=== PATIENT | male | born 1960 | race Caucasian/White ===

== ENCOUNTER 2016-11-04 08:43 | Observation (INO) | payer MEDICAID, OTHER ==
[2016-11-04] MEDS ORDERED: Sodium Chloride 0.9% 2.5 ML Syringe FLUSH PRN ×2 (09:30)
[2016-11-04] MEDS ORDERED: Sodium Chloride 0.9% 10 ML Syringe FLUSH PRN ×2 (09:30)
[2016-11-04] MEDS ORDERED: Sodium Chloride 0.9% 1,000 ML IV ONE (09:30)
--- NOTE | 2016-11-04 10:37 | EDM.PDOC ---
[id number] Information: Reports: Patient History Limitations: Reports: No Limitations - History of Present Illness INITIAL COMMENTS - FREE TEXT/NARRATIVE: HISTORY AND PHYSICAL: History of present illness: [56-year-old male complaining of malaise and urinary difficulties] Review of systems: As per history of present illness and below otherwise all systems reviewed and negative. Past medical history: As per history of present illness and as reviewed below otherwise noncontributory. Surgical history: As per history of present illness and as reviewed below otherwise noncontributory. Social history: No reported history of drug or alcohol abuse. Family history: As per history of present illness and as reviewed below otherwise noncontributory. Physical exam: HEENT: Atraumatic, normocephalic, pupils reactive, negative for conjunctival pallor or scleral icterus, mucous membranes moist, throat clear, neck supple, nontender, trachea midline. Lungs: Clear to auscultation, breath sounds equal bilaterally, chest nontender. Heart: S1S2, regular, negative for clicks, rubs, or JVD. Abdomen: Soft, nondistended, nontender. Negative for masses or hepatosplenomegaly. Negative for costovertebral tenderness. Pelvis: Stable nontender. Genitourinary: Deferred. Rectal: Deferred. Extremities: Atraumatic, negative for cords or calf pain. Neurovascular unremarkable. Neuro: Awake, alert, oriented. Cranial nerves II through XII unremarkable. Cerebellum unremarkable. Motor and sensory unremarkable throughout. Exam nonfocal. Diagnostics: [] Therapeutics: [] Impression: [] Plan: [Will do observation admission for treatment of hyponatremia case discussed with Dr. Enrrique Manzanares is aware of history and findings accept patient for observation admission to his service] Definitive disposition and diagnosis as appropriate pending reevaluation and review of above. Generalized abdominal pain Pain Score (Numeric/FACES): 7 - Related Data Allergies Allergy/AdvReac Type Severity Reaction Status Date / Time No Known Allergies Allergy Verified 11/04/16 09:00 Home Meds: Home Meds Polyethylene Glycol 3350 [MiraLAX] 17 gm PO BID #30 packet 11/06/16 [Rx] Tamsulosin HCl 0.4 mg PO DAILY #30 cap.er.24h 11/06/16 [Rx] Past Medical History - Past Health History Medical/Surgical History: Denies Medical/Surgical History Hematologic History: Reports: None - Infectious Disease History Infectious Disease History: Reports: Chicken Pox, Measles, Mumps Social & Family History - Family History Family Medical History: Noncontributory - Tobacco Use Smoking Status *Q: Current Every Day Smoker Years of Tobacco use: 40 Packs/Tins Daily: 1 - Caffeine Use Caffeine Use: Reports: None - Recreational Drug Use Recreational Drug Use: No ED ROS GENERAL - Review of Systems Review Of Systems: See Below (History of present illness) ED EXAM, RENAL/ - Physical Exam Exam: See Below (History of present illness) Course - Vital Signs Last Recorded V/S: Last Vital Signs Temp 36.9 C 11/06/16 16:00 Pulse 82 11/06/16 16:00 Resp 20 11/06/16 16:00 BP 106/56 L 11/06/16 16:00 Pulse Ox 91 L 11/06/16 16:00 - Orders/Labs/Meds Labs: Laboratory Tests 11/04/16 11/04/16 11/04/16 Range/Units 09:44 10:05 10:11 WBC (4.0-11.0) K/uL RBC (4.50-5.90) M/uL Hgb (13.0-17.0) g/dL Hct (38.0-50.0) % MCV (80.0-98.0) fL MCH (27.0-32.0) pg MCHC (31.0-37.0) g/dL RDW Std Deviation (28.0-62.0) fl RDW Coeff of Marcos (11.0-15.0) % Plt Count (150-400) K/uL MPV (7.40-12.00) fL Add Manual Diff Neutrophils % (Manual) (48.0-80.0) % Band Neutrophils % % Lymphocytes % (Manual) (16.0-40.0) % Monocytes % (Manual) (0.0-15.0) % Nucleated RBC % /100WBC Absolute Seg Neuts Band Neutrophils # Lymphocytes # (Manual) Monocytes # (Manual) Nucleated RBCs # K/uL Sodium 115 L* (136-146) mmol/L Potassium 3.4 L (3.5-5.1) mmol/L Chloride 80 L (98-110) mmol/L Carbon Dioxide 25 (21-31) mmol/L BUN 15 (6.0-23.0) mg/dL Creatinine 0.9 (0.6-1.5) mg/dL Est Cr Clr Drug Dosing 93.50 mL/min Estimated GFR (MDRD) > 60.0 ml/min Glucose 97 (60-110) mg/dL Calcium 7.8 L (8.8-10.8) mg/dL Total Bilirubin 0.7 (0.1-1.5) mg/dL AST 116 H (5-40) IU/L ALT 23 (8-54) IU/L Alkaline Phosphatase 75 (40-150) Troponin I < 0.10 (0.0-0.29) NG/ML Total Protein 6.8 (6.0-8.0) g/dL Albumin 3.8 (3.5-5.0) g/dL Globulin 3.0 (2.0-3.5) g/dL Albumin/Globulin Ratio 1.3 (1.3-2.8) Urine Color YELLOW Urine Appearance CLEAR Urine pH 6.0 (5.0-8.0) Ur Specific Brewer 1.010 (1.001-1.035) Urine Protein NEGATIVE (NEGATIVE) mg/dL Urine Glucose (UA) NEGATIVE (NEGATIVE) mg/dL Urine Ketones 15 H (NEGATIVE) mg/dL Urine Occult Blood SMALL H (NEGATIVE) Urine Nitrite NEGATIVE (NEGATIVE) Urine Bilirubin NEGATIVE (NEGATIVE) Urine Urobilinogen 1.0 (<2.0) EU/dL Ur Leukocyte Esterase NEGATIVE (NEGATIVE) Urine RBC 0-1 (0-2/HPF) Urine WBC 0-2 (0-5/HPF) Ur Epithelial Cells FEW (NONE-FEW) Urine Bacteria FEW (NEGATIVE) 11/04/16 Range/Units 10:11 WBC 7.50 (4.0-11.0) K/uL RBC 4.24 L (4.50-5.90) M/uL Hgb 13.9 (13.0-17.0) g/dL Hct 37.6 L (38.0-50.0) % MCV 88.7 (80.0-98.0) fL MCH 32.8 H (27.0-32.0) pg MCHC 37.0 (31.0-37.0) g/dL RDW Std Deviation 43.4 (28.0-62.0) fl RDW Coeff of Marcos 13 (11.0-15.0) % Plt Count 119 L (150-400) K/uL MPV 10.20 (7.40-12.00) fL Add Manual Diff YES Neutrophils % (Manual) 67 (48.0-80.0) % Band Neutrophils % 17 % Lymphocytes % (Manual) 10 L (16.0-40.0) % Monocytes % (Manual) 6 (0.0-15.0) % Nucleated RBC % 0.0 /100WBC Absolute Seg Neuts 5.0 Band Neutrophils # 1.3 Lymphocytes # (Manual) 0.8 Monocytes # (Manual) 0.5 Nucleated RBCs # 0 K/uL Sodium (136-146) mmol/L Potassium (3.5-5.1) mmol/L Chloride (98-110) mmol/L Carbon Dioxide (21-31) mmol/L BUN (6.0-23.0) mg/dL Creatinine (0.6-1.5) mg/dL Est Cr Clr Drug Dosing mL/min Estimated GFR (MDRD) ml/min Glucose (60-110) mg/dL Calcium (8.8-10.8) mg/dL Total Bilirubin (0.1-1.5) mg/dL AST (5-40) IU/L ALT (8-54) IU/L Alkaline Phosphatase (40-150) Troponin I (0.0-0.29) NG/ML Total Protein (6.0-8.0) g/dL Albumin (3.5-5.0) g/dL Globulin (2.0-3.5) g/dL Albumin/Globulin Ratio (1.3-2.8) Urine Color Urine Appearance Urine pH (5.0-8.0) Ur Specific Brewer (1.001-1.035) Urine Protein (NEGATIVE) mg/dL Urine Glucose (UA) (NEGATIVE) mg/dL Urine Ketones (NEGATIVE) mg/dL Urine Occult Blood (NEGATIVE) Urine Nitrite (NEGATIVE) Urine Bilirubin (NEGATIVE) Urine Urobilinogen (<2.0) EU/dL Ur Leukocyte Esterase (NEGATIVE) Urine RBC (0-2/HPF) Urine WBC (0-5/HPF) Ur Epithelial Cells (NONE-FEW) Urine Bacteria (NEGATIVE) Meds: Medications Discontinued Medications Generic Name Dose Route Start Last Admin Trade Name Freq PRN Reason Stop Dose Admin Bisacodyl 10 mg 11/04/16 14:23 11/04/16 14:50 Dulcolax RECTAL 11/04/16 14:24 10 mg ONETIME ONE Administration Sodium Chloride 1,000 mls @ 999 mls/hr 11/04/16 09:30 11/04/16 09:49 Normal Saline IV 11/04/16 10:30 999 mls/hr .Bolus ONE Administration Potassium Chloride/Sodium Chloride 1,000 mls @ 75 mls/hr 11/04/16 14:30 11/05 03:44 Normal Saline With 20 Meq Kcl IV 75 mls/hr ASDIRECTED FAISAL Administration Magnesium Sulfate 2 gm/ Premix 50 mls @ 50 mls/hr 11/05/16 09:24 11/05/16 10: 24 IV 11/05/16 10:23 50 mls/hr ONETIME ONE Administration Potassium Chloride/Sodium Chloride 1,000 mls @ 100 mls/hr 11/05/16 15:00 10/20 13:05 Normal Saline With 20 Meq Kcl IV 100 mls/hr ASDIRECTED FAISAL Administration Iopamidol 100 ml 11/04/16 11:48 11/04/16 11:50 Isovue-370 (76%) IVPUSH 11/04/16 11:49 50 ml ONETIME STA Administration Polyethylene Glycol 17 gm 11/06/16 10:00 11/06/16 11:34 Miralax PO 17 gm BID FAISAL Administration Potassium Chloride 20 meq 11/05/16 00:37 11/05/16 00:56 Klor-Con M20 PO 11/05/16 00:38 20 meq ONETIME ONE Administration Sodium Chloride 10 ml 11/04/16 09:30 11/04/16 09:49 Saline Flush FLUSH 10 ml ASDIRECTED PRN Administration Keep Vein Open Sodium Chloride 2.5 ml 11/04/16 09:30 11/04/16 09:49 Saline Flush FLUSH 2.5 ml ASDIRECTED PRN Administration Keep Vein Open Sodium Chloride 10 ml 11/04/16 09:30 11/04/16 09:49 Saline Flush FLUSH 10 ml ASDIRECTED PRN Administration Keep Vein Open Sodium Chloride 2.5 ml 11/04/16 09:30 11/04/16 09:49 Saline Flush FLUSH 2.5 ml ASDIRECTED PRN Administration Keep Vein Open Departure - Departure Time of Disposition: 15:55 Disposition: Refer to Observation Clinical Impression: Hyponatremia, Urinary retention - Discharge Information ED HPI RENAL/ - General Chief Complaint: Genitourinary Problem Stated Complaint: PT WOULD LIKE TO GET CHECK Time Seen by Provider: 11/04/16 08:48 Source of Information: Reports: Patient History Limitations: Reports: No Limitations - History of Present Illness INITIAL COMMENTS - FREE TEXT/NARRATIVE: HISTORY AND PHYSICAL: History of present illness: [56-year-old male with a long history of tobacco abuse and no prior urologic problems now presents emergent primary complaining of urinary retention. Patient states he is felt constipated over the last several days and has not moved his bowels. No nausea or vomiting. Denies abdominal pain. Patient also feels like he has subtotal avoid today. Denies fevers chills sweats or shaking chills. No flank pain. Patient has never seen a urologist or had any urinary problems. Patient does not have a primary care doctor and does not go to the doctor frequently. Patient is alert and communicative but he is slow to respond answers. His sister who is present the emergency department states that he is at his normal, chronic mental status baseline. Patient had mild hypoxia at 89-90 % nonrib-bearing triage. He has no respiratory complaints and states he always has some cough and mild chronic shortness of breath with no change. No productive cough Review of systems: As per history of present illness and below otherwise all systems reviewed and negative. Past medical history: As per history of present illness and as reviewed below otherwise noncontributory. Surgical history: As per history of present illness and as reviewed below otherwise noncontributory. Social history: No reported history of drug or alcohol abuse. Family history: As per history of present illness and as reviewed below otherwise noncontributory. Physical exam: Patient is alert communicative and cooperative with a nonfocal neurologic exam. He is well-appearing mild hypoxia on room air 89-90%, 93% on 2 L nasal cannula. Patient with benign abdominal exam with no distention and normal bowel sounds. Mild suprapubic fullness without significant tenderness HEENT: Atraumatic, normocephalic, pupils reactive, negative for conjunctival pallor or scleral icterus, mucous membranes moist, throat clear, neck supple, nontender, trachea midline. Lungs: Clear to auscultation, breath sounds equal bilaterally, chest nontender. Heart: S1S2, regular, negative for clicks, rubs, or JVD. Abdomen: Soft, nondistended, nontender. Negative for masses or hepatosplenomegaly. Negative for costovertebral tenderness. Pelvis: Stable nontender. Genitourinary: Normal nontender external genitalia. Mild suprapubic fullness without tenderness Rectal: Deferred. Extremities: Atraumatic, negative for cords or calf pain. Neurovascular unremarkable. Neuro: Awake, alert, oriented. Cranial nerves II through XII unremarkable. Cerebellum unremarkable. Motor and sensory unremarkable throughout. Exam nonfocal. Diagnostics: [] Therapeutics: [] Impression: [] Plan: [Signs and symptoms consistent with new presentation of urinary retention. Patient with 350 cc of urinary residual in his bladder after voiding just prior to presentation. Patient has no infectious prodrome. External genitalia is normal. Patient is constipated but his abdominal exam is completely benign. Patient unable to void for urinalysis Caraballo catheter placed in anticipation of indwelling Caraballo catheter placement with leg bag and urology followup. Suspect mild chronic hypoxia given patient's certain diagnosis of COPD of which he is unaware, however will check EKG troponin labs and chest x-ray to rule out acute contributory etiology Definitive disposition and diagnosis as appropriate pending reevaluation and review of above. - Related Data Allergies/ADRs: Allergies Allergy/AdvReac Type Severity Reaction Status Date / Time No Known Allergies Allergy Verified 11/04/16 09:00 Home Meds: Home Meds Polyethylene Glycol 3350 [MiraLAX] 17 gm PO BID #30 packet 11/06/16 [Rx] Tamsulosin HCl 0.4 mg PO DAILY #30 cap.er.24h 11/06/16 [Rx] Departure - Departure Time of Disposition: 11:24 Disposition: Refer to Observation Condition: good, fair Clinical Impression: Hyponatremia, Urinary retention
[2016-11-04 10:43] LABS: CHLORIDE,CL 80 mmol/L (98-110)
[2016-11-04 10:47] LABS: SODIUM,NA 115 mmol/L (136-146)
[2016-11-04] MEDS ORDERED: Iopamidol 755 Mg/ML 100 ML Bottle IVPUSH STA (11:48)
--- NOTE | 2016-11-04 14:07 | PCM.HP ---
H&P History of Present Illness - General Date of Service: 11/04/16 Source of Information: Patient, Family History Limitations: Reports: Altered mental status - History of Present Illness Initial Comments - Free Text/Narative: Pt comes to ER with several days history of constipation and urinary difficulties Sister also reports marked (20#) weight gain recently Found to be quite hyponatremic at 115 mEq/l Onset of Symptoms: Reports: gradual Duration of Symptoms: Reports: Week(s):, Getting worse Location: Reports: abdomen (pain across lower abdomen) Severity: moderate Improves with: Reports: None Worsens with: Reports: None Associated Symptoms: Reports: confusion (probably new though there has been some chronic aberration with agoraphobia) Generalized abdominal pain Pain Score (Numeric/FACES): 7 - Related Data Allergies/Adverse Reactions: Allergies Allergy/AdvReac Type Severity Reaction Status Date / Time No Known Allergies Allergy Verified 11/04/16 09:00 Home Medications: Home Meds . [No Known Home Meds] 11/04/16 [History] Past Medical History - Past Health History Medical/Surgical History: Denies Medical/Surgical History Hematologic History: Reports: None - Infectious Disease History Infectious Disease History: Reports: Chicken pox, Measles, Mumps Social & Family History - Family History Family Medical History: Noncontributory Cardiac: Reports: [place] Other Cardiac Family History: Mother from [place] - Tobacco Use Smoking Status *Q: Current Every Day Smoker Tobacco Use Within Last Twelve Months: Cigarettes Years of Tobacco use: 40 Packs/Tins Daily: 0.5 Second Hand Smoke Exposure: Yes - Caffeine Use Caffeine Use: Reports: Coffee, Soda - Recreational Drug Use Recreational Drug Use: No - Living Situation & Occupation Occupation: unemployed (Dropped out of high school. 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) H&P Review of Systems - Review of Systems: Review Of Systems: See Below General: Reports: no symptoms HEENT: Reports: no symptoms Pulmonary: Reports: No Symptoms, Other (rather sedentary) Cardiovascular: Reports: no symptoms Gastrointestinal: Reports: No symptoms, Constipation Genitourinary: Reports: retention Musculoskeletal: Reports: no symptoms Skin: Reports: no symptoms Psychiatric: Reports: no symptoms Neurological: Reports: No Symptoms Hematologic/Lymphatic: Reports: no symptoms Immunologic: Reports: no symptoms Exam - Exam Exam: See Below - Vital Signs Vital Signs: Last Vital Signs Temp 37.2 C 11/04/16 08:56 Pulse 86 11/04/16 11:30 Resp 15 11/04/16 11:30 BP 134/80 11/04/16 11:30 Pulse Ox 92 L 11/04/16 11:30 Weight: 76.204 kg - Exam General: alert, oriented (can name [place] city,day and year ,season but not date or month) HEENT: Conjunctiva clear, Hearing intact, TMs clear Neck: supple, trachea midline Lungs: Clear to auscultation, Normal respiratory effort Cardiovascular: regular rate, regular rhythm Abdomen: distention (mild), hypoactive bowel sounds (Male) Exam: Deferred Back Exam: normal inspection Extremities: 3, normal inspection, 10 Skin: warm, dry, intact Neurological: cranial nerves intact Neuro Extensive - Mental Status: alert, disorientation to time, inattentive ( very passive, little spontaneous movement or speech) Neuro Extensive - Motor, Sensory, Reflexes: CN II-XII intact Psychiatric: alert, other (very passive and quiet) - Patient Data Result Diagrams: 11/04/16 10:11 11/04/16 10:11 *Q Meaningful Use (ADM) - VTE *Q VTE Criteria *Q: - Stroke *Q Stroke Criteria *Q: - AMI *Q AMI Criteria *Q: Problem List Initiated/Reviewed/Updated: Yes Orders Last 24hrs: Active Orders 24 hr Category Date Time Status Telemetry Monitoring [Cardiac Monitoring] [RC] Q8H Care 11/04/16 12:10 Active CTA Chest W WO Contrast [Ang Chest] [CT] Routine Exams 11/04/16 11:34 Taken Medication Orders Sodium Chloride (Saline Flush) 10 ml FLUSH ASDIRECTED PRN PRN Reason: Keep Vein Open Last Admin: 11/04/16 09:49 Dose: 10 ml Sodium Chloride (Saline Flush) 2.5 ml FLUSH ASDIRECTED PRN PRN Reason: Keep Vein Open Last Admin: 11/04/16 09:49 Dose: 2.5 ml Sodium Chloride (Saline Flush) 10 ml FLUSH ASDIRECTED PRN PRN Reason: Keep Vein Open Last Admin: 11/04/16 09:49 Dose: 10 ml Sodium Chloride (Saline Flush) 2.5 ml FLUSH ASDIRECTED PRN PRN Reason: Keep Vein Open Last Admin: 11/04/16 09:49 Dose: 2.5 ml
[2016-11-04] MEDS ORDERED: Bisacodyl 10 MG Supp RECTAL ONE (14:23)
[2016-11-04] MEDS: NS + KCl 20mEq/L 1,000 ML IV SCH (14:49)
[2016-11-04 22:22] LABS: CHLORIDE,CL 86 mmol/L (98-110)
[2016-11-04 22:35] LABS: SODIUM,NA 120 mmol/L (136-146)
[2016-11-05] MEDS ORDERED: Potassium Chloride 20 MEQ Tab.ER PO ONE (00:37)
[2016-11-05] MEDS: NS + KCl 20mEq/L 1,000 ML IV SCH ×2 (03:44→16:03)
[2016-11-05 07:59] LABS: CHLORIDE,CL 91 mmol/L (98-110); SODIUM,NA 123 mmol/L (136-146)
[2016-11-05] MEDS ORDERED: Magnesium Sulfate/Water 2 GM in Premix Bag 1 BAG IV ONE (09:24)
--- NOTE | 2016-11-05 14:48 | PCM.PN ---
- General Info Date of Service: 11/05/16 Functional Status: Reports: pain controlled - Review of Systems General: Reports: No Symptoms HEENT: Reports: no symptoms Pulmonary: Reports: no symptoms Cardiovascular: Reports: No Symptoms Gastrointestinal: Reports: Constipation (unclear if he moved bowels again) Genitourinary: Reports: other (still has catheter) Musculoskeletal: Reports: no symptoms Skin: Reports: no symptoms Neurological: Reports: No Symptoms Psychiatric: Reports: no symptoms - Patient Data Vitals - most recent: Last Vital Signs Temp 37.3 C 11/05/16 12:00 Pulse 85 11/05/16 12:00 Resp 12 11/05/16 12:00 BP 101/65 11/05/16 12:00 Pulse Ox 93 L 11/05/16 12:00 Weight - most recent: 76.204 kg I&O - last 24 hours: Intake & Output 11/04/16 11/05/16 11/05/16 22:59 06:59 14:59 Intake Total 300 1716 50 Output Total 1400 1600 Balance -1100 116 50 Lab Results last 24 hrs: Laboratory Results - last 24 hr 11/04/16 11/05/16 Range/Units 21:54 07:31 Sodium 120 L 123 L (136-146) mmol/L Potassium 3.3 L 3.8 (3.5-5.1) mmol/L Chloride 86 L 91 L (98-110) mmol/L Carbon Dioxide 25 24 (21-31) mmol/L BUN 17 12 (6.0-23.0) mg/dL Creatinine 0.9 0.8 (0.6-1.5) mg/dL Est Cr Clr Drug Dosing 90.56 101.88 mL/min Estimated GFR (MDRD) > 60.0 > 60.0 ml/min Glucose 98 83 (60-110) mg/dL Calcium 7.6 L 7.7 L (8.8-10.8) mg/dL Magnesium 1.4 L (1.5-2.3) mEq/L Med Orders - Current: Current Medications Potassium Chloride/Sodium Chloride (Normal Saline With 20 Meq Kcl) 1,000 mls @ 75 mls/hr IV ASDIRECTED FAISAL Last Admin: 11/05/16 03:44 Dose: 75 mls/hr Sodium Chloride (Saline Flush) 10 ml FLUSH ASDIRECTED PRN PRN Reason: Keep Vein Open Last Admin: 11/04/16 09:49 Dose: 10 ml Sodium Chloride (Saline Flush) 2.5 ml FLUSH ASDIRECTED PRN PRN Reason: Keep Vein Open Last Admin: 11/04/16 09:49 Dose: 2.5 ml Sodium Chloride (Saline Flush) 10 ml FLUSH ASDIRECTED PRN PRN Reason: Keep Vein Open Last Admin: 11/04/16 09:49 Dose: 10 ml Sodium Chloride (Saline Flush) 2.5 ml FLUSH ASDIRECTED PRN PRN Reason: Keep Vein Open Last Admin: 11/04/16 09:49 Dose: 2.5 ml Discontinued Medications Bisacodyl (Dulcolax) 10 mg RECTAL ONETIME ONE Stop: 11/04/16 14:24 Last Admin: 11/04/16 14:50 Dose: 10 mg Sodium Chloride (Normal Saline) 1,000 mls @ 999 mls/hr IV .Bolus ONE Stop: 11/04/16 10:30 Last Admin: 11/04/16 09:49 Dose: 999 mls/hr Magnesium Sulfate 2 gm/ Premix 50 mls @ 50 mls/hr IV ONETIME ONE Stop: 11/05/16 10:23 Last Admin: 11/05/16 10:24 Dose: 50 mls/hr Iopamidol (Isovue-370 (76%)) 100 ml IVPUSH ONETIME STA Stop: 11/04/16 11:49 Last Admin: 11/04/16 11:50 Dose: 50 ml Potassium Chloride (Klor-Con M20) 20 meq PO ONETIME ONE Stop: 11/05/16 00:38 Last Admin: 11/05/16 00:56 Dose: 20 meq - Exam General: alert (but quite subdued, poor eye contact) HEENT: Pupils equal Neck: trachea midline Lungs: Clear to auscultation Cardiovascular: Regular Rate Abdomen: soft, no distension (Male) Exam: Deferred Back Exam: normal inspection Extremities: no edema Skin: warm Wound/Incisions: healing well (n/a) Neurological: no new focal deficit Psy/Mental Status: alert - Problem List Review Problem List Initiated/Reviewed/Updated: Yes - My Orders Last 24 Hours: My Active Orders 11/04/16 14:30 NS + KCl 20mEq/L [Normal Saline with 20 mEq KCl] 1,000 ml IV ASDIRECTED 11/04/16 17:30 Code Status [Resuscitation Status] Routine 11/04/16 Dinner Regular Diet [DIET] 11/06/16 05:01 MAGNESIUM [CHEM] Routine - Assessment Assessment:: sodium 123, same as yesterday, magnesium being repleted, calcium also low in face of normal albumen increase sodium delivery, check ionized calcium
[2016-11-06] MEDS: NS + KCl 20mEq/L 1,000 ML IV SCH ×2 (02:36→13:05)
[2016-11-06 05:33] LABS: CHLORIDE,CL 97 mmol/L (98-110); SODIUM,NA 127 mmol/L (136-146)
[2016-11-06] MEDS ORDERED: Polyethylene Glycol 3350 Powder 17 GM Packet PO SCH (10:00)
--- NOTE | 2016-11-06 10:04 | PCM.PN ---
- General Info Date of Service: 11/06/16 Functional Status: Reports: pain controlled - Review of Systems General: Reports: No Symptoms HEENT: Reports: no symptoms Pulmonary: Reports: no symptoms Cardiovascular: Reports: No Symptoms Gastrointestinal: Reports: Other (no bowel moment, unclear if still feeling bloated) Genitourinary: Reports: other (reluctant to do without javed in case it has to be put back in) Musculoskeletal: Reports: no symptoms Skin: Reports: no symptoms Neurological: Reports: No Symptoms Psychiatric: Reports: no symptoms - Patient Data Vitals - most recent: Last Vital Signs Temp 36.4 C 11/06/16 07:59 Pulse 80 11/06/16 07:59 Resp 22 H 11/06/16 07:59 BP 100/56 L 11/06/16 07:59 Pulse Ox 91 L 11/06/16 07:59 Weight - most recent: 76.204 kg I&O - last 24 hours: Intake & Output 11/05/16 11/06/16 11/06/16 22:59 06:59 14:59 Intake Total 1000 2000 Output Total 1600 1300 Balance -600 700 Lab Results last 24 hrs: Laboratory Results - last 24 hr 11/05/16 11/06/16 11/06/16 Range/Units 15:00 04:30 04:30 WBC 7.43 (4.0-11.0) K/uL RBC 3.81 L (4.50-5.90) M/uL Hgb 12.6 L (13.0-17.0) g/dL Hct 35.8 L (38.0-50.0) % MCV 94.0 (80.0-98.0) fL MCH 33.1 H (27.0-32.0) pg MCHC 35.2 (31.0-37.0) g/dL RDW Std Deviation 48.6 (28.0-62.0) fl RDW Coeff of Marcos 14 (11.0-15.0) % Plt Count 105 L (150-400) K/uL MPV 10.20 (7.40-12.00) fL Neut % (Auto) 73.6 (48.0-80.0) % Lymph % (Auto) 11.4 L (16.0-40.0) % Walker % (Auto) 14.9 (0.0-15.0) % Eos % (Auto) 0.0 (0.0-7.0) % Baso % (Auto) 0.1 (0.0-1.5) % Neut # (Auto) 5.5 (1.4-5.7) K/uL Lymph # (Auto) 0.9 (0.6-2.4) K/uL Walker # (Auto) 1.1 H (0.0-0.8) K/uL Eos # (Auto) 0.0 (0.0-0.7) K/uL Baso # (Auto) 0.0 (0.0-0.1) K/uL Nucleated RBC % 0.8 /100WBC Nucleated RBCs # 0 K/uL Ionized Calcium 4.0 L (4.6-5.1) mg/dL Sodium 127 L (136-146) mmol/L Potassium 4.1 (3.5-5.1) mmol/L Chloride 97 L (98-110) mmol/L Carbon Dioxide 21 (21-31) mmol/L BUN 10 (6.0-23.0) mg/dL Creatinine 0.8 (0.6-1.5) mg/dL Est Cr Clr Drug Dosing 101.88 mL/min Estimated GFR (MDRD) > 60.0 ml/min Glucose 82 (60-110) mg/dL Calcium 7.4 L (8.8-10.8) mg/dL Phosphorus 1.2 L (2.4-4.7) mg/dL Magnesium 1.7 (1.5-2.3) mEq/L Med Orders - Current: Current Medications Potassium Chloride/Sodium Chloride (Normal Saline With 20 Meq Kcl) 1,000 mls @ 100 mls/hr IV ASDIRECTED FAISAL Last Admin: 11/06/16 02:36 Dose: 100 mls/hr Polyethylene Glycol (Miralax) 17 gm PO BID [facility] Sodium Chloride (Saline Flush) 10 ml FLUSH ASDIRECTED PRN PRN Reason: Keep Vein Open Last Admin: 11/04/16 09:49 Dose: 10 ml Sodium Chloride (Saline Flush) 2.5 ml FLUSH ASDIRECTED PRN PRN Reason: Keep Vein Open Last Admin: 11/04/16 09:49 Dose: 2.5 ml Sodium Chloride (Saline Flush) 10 ml FLUSH ASDIRECTED PRN PRN Reason: Keep Vein Open Last Admin: 11/04/16 09:49 Dose: 10 ml Sodium Chloride (Saline Flush) 2.5 ml FLUSH ASDIRECTED PRN PRN Reason: Keep Vein Open Last Admin: 11/04/16 09:49 Dose: 2.5 ml Discontinued Medications Bisacodyl (Dulcolax) 10 mg RECTAL ONETIME ONE Stop: 11/04/16 14:24 Last Admin: 11/04/16 14:50 Dose: 10 mg Sodium Chloride (Normal Saline) 1,000 mls @ 999 mls/hr IV .Bolus ONE Stop: 11/04/16 10:30 Last Admin: 11/04/16 09:49 Dose: 999 mls/hr Potassium Chloride/Sodium Chloride (Normal Saline With 20 Meq Kcl) 1,000 mls @ 75 mls/hr IV ASDIRECTED [facility] Last Admin: 11/05/16 03:44 Dose: 75 mls/hr Magnesium Sulfate 2 gm/ Premix 50 mls @ 50 mls/hr IV ONETIME ONE Stop: 11/05/16 10:23 Last Admin: 11/05/16 10:24 Dose: 50 mls/hr Iopamidol (Isovue-370 (76%)) 100 ml IVPUSH ONETIME STA Stop: 11/04/16 11:49 Last Admin: 11/04/16 11:50 Dose: 50 ml Potassium Chloride (Klor-Con M20) 20 meq PO ONETIME ONE Stop: 11/05/16 00:38 Last Admin: 11/05/16 00:56 Dose: 20 meq - Exam General: alert, other (still very subdued though a little more animated today) HEENT: Pupils equal Neck: trachea midline Lungs: Clear to auscultation, Decreased breath sounds Cardiovascular: Regular Rate Abdomen: bowel sounds present, other (Male) Exam: Other (rectal ;mildly enlarged sl boggy prostate without nodules or tenderness. No stooli n rectum) Back Exam: normal inspection Extremities: no edema Skin: warm Wound/Incisions: healing well (n/a) Neurological: no new focal deficit Psy/Mental Status: alert (flat affect) - Problem List Review Problem List Initiated/Reviewed/Updated: Yes - My Orders Last 24 Hours: My Active Orders 11/05/16 15:00 NS + KCl 20mEq/L [Normal Saline with 20 mEq KCl] 1,000 ml IV ASDIRECTED 11/06/16 09:43 Remove Javed Catheter [Urinary Catheter Removal] [RC] Per Unit Routine 11/06/16 09:51 Communication Order [RC] PER UNIT ROUTINE 11/06/16 10:00 Polyethylene Glycol 3350 [MiraLAX] 17 gm PO BID - Assessment Assessment:: sodium 123, same as yesterday, magnesium being repleted, calcium also low in face of normal albumen increase sodium delivery, check ionized calcium - Plan Plan:: sodimum up to 127 ionized calcium 4.0 , even phosphorus low plan; laxate remove javed, mobilize
--- NOTE | 2016-11-06 15:09 | PCM.SN ---
- Free Text/Narrative Note: offers no complains. Eating well. yet no BM Has voided post Caraballo removal with a residual of 95 ml
--- NOTE | 2016-11-06 15:44 | PCM.DCSUM1 ---
Discharge Summary - Hospital Course Free Text/Narrative:: 56 yo man with little if any medical contact since childhood celiac disease comes to [facility] complaining of constipation amd lower abdominal pain Found to be in urinary retention with residual of 350, so catheter was placed. In addition he was profoundly hyponatremic as well as having low potassium magnesium and calcium, all but the last successfully repleted , Pulse ox was also low with sats in the mid to high 80ies and dropping to 82 with activity and did not rise despite weaning from cigarettes with help of a nicotine patch ,He is prescribed home oxygen at 2-3 l/mi - Discharge Data Discharge Date: 11/06/16 Discharge Disposition: Home, Self-Care 01 Condition: Fair - Discharge Plan Prescriptions/Med Rec: Polyethylene Glycol 3350 [MiraLAX] 17 gm PO BID #30 packet Tamsulosin HCl 0.4 mg PO DAILY #30 cap.er.24h Home Medications: Home Meds Polyethylene Glycol 3350 [MiraLAX] 17 gm PO BID #30 packet 11/06/16 [Rx] Tamsulosin HCl 0.4 mg PO DAILY #30 cap.er.24h 11/06/16 [Rx] - Discharge Summary/Plan Comment DC Time >30 min.: No Discharge Summary/Plan Comment: He is advised to establish care with someone who can follow him and perform rechecks on his electrolyte derangements - General Info Date of Service: 11/06/16 Functional Status: Reports: pain controlled - Review of Systems General: Reports: No Symptoms HEENT: Reports: no symptoms Pulmonary: Reports: no symptoms Cardiovascular: Reports: No Symptoms Gastrointestinal: Reports: No symptoms Genitourinary: Reports: no symptoms Musculoskeletal: Reports: no symptoms Skin: Reports: no symptoms Neurological: Reports: No Symptoms Psychiatric: Reports: no symptoms - Patient Data Vitals - Most Recent: Last Vital Signs Temp 36.6 C 11/06/16 11:26 Pulse 75 11/06/16 11:26 Resp 22 H 11/06/16 11:26 BP 99/57 L 11/06/16 11:26 Pulse Ox 94 L 11/06/16 11:26 Weight - Most Recent: 76.204 kg I&O - Last 24 hours: Intake & Output 11/06/16 11/06/16 11/06/16 06:59 14:59 22:59 Intake Total 2000 Output Total 1300 Balance 700 Lab Results - Last 24 hrs: Laboratory Results - last 24 hr 11/06/16 11/06/16 Range/Units 04:30 04:30 WBC 7.43 (4.0-11.0) K/uL RBC 3.81 L (4.50-5.90) M/uL Hgb 12.6 L (13.0-17.0) g/dL Hct 35.8 L (38.0-50.0) % MCV 94.0 (80.0-98.0) fL MCH 33.1 H (27.0-32.0) pg MCHC 35.2 (31.0-37.0) g/dL RDW Std Deviation 48.6 (28.0-62.0) fl RDW Coeff of Marcos 14 (11.0-15.0) % Plt Count 105 L (150-400) K/uL MPV 10.20 (7.40-12.00) fL Neut % (Auto) 73.6 (48.0-80.0) % Lymph % (Auto) 11.4 L (16.0-40.0) % Metcalfe % (Auto) 14.9 (0.0-15.0) % Eos % (Auto) 0.0 (0.0-7.0) % Baso % (Auto) 0.1 (0.0-1.5) % Neut # (Auto) 5.5 (1.4-5.7) K/uL Lymph # (Auto) 0.9 (0.6-2.4) K/uL Metcalfe # (Auto) 1.1 H (0.0-0.8) K/uL Eos # (Auto) 0.0 (0.0-0.7) K/uL Baso # (Auto) 0.0 (0.0-0.1) K/uL Nucleated RBC % 0.8 /100WBC Nucleated RBCs # 0 K/uL Sodium 127 L (136-146) mmol/L Potassium 4.1 (3.5-5.1) mmol/L Chloride 97 L (98-110) mmol/L Carbon Dioxide 21 (21-31) mmol/L BUN 10 (6.0-23.0) mg/dL Creatinine 0.8 (0.6-1.5) mg/dL Est Cr Clr Drug Dosing 101.88 mL/min Estimated GFR (MDRD) > 60.0 ml/min Glucose 82 (60-110) mg/dL Calcium 7.4 L (8.8-10.8) mg/dL Phosphorus 1.2 L (2.4-4.7) mg/dL Magnesium 1.7 (1.5-2.3) mEq/L Med Orders - Current: Current Medications Potassium Chloride/Sodium Chloride (Normal Saline With 20 Meq Kcl) 1,000 mls @ 100 mls/hr IV ASDIRECTED [facility] Last Admin: 11/06/16 13:05 Dose: 100 mls/hr Polyethylene Glycol (Miralax) 17 gm PO BID [facility] Last Admin: 11/06/16 11:34 Dose: 17 gm Sodium Chloride (Saline Flush) 10 ml FLUSH ASDIRECTED PRN PRN Reason: Keep Vein Open Last Admin: 11/04/16 09:49 Dose: 10 ml Sodium Chloride (Saline Flush) 2.5 ml FLUSH ASDIRECTED PRN PRN Reason: Keep Vein Open Last Admin: 11/04/16 09:49 Dose: 2.5 ml Sodium Chloride (Saline Flush) 10 ml FLUSH ASDIRECTED PRN PRN Reason: Keep Vein Open Last Admin: 11/04/16 09:49 Dose: 10 ml Sodium Chloride (Saline Flush) 2.5 ml FLUSH ASDIRECTED PRN PRN Reason: Keep Vein Open Last Admin: 11/04/16 09:49 Dose: 2.5 ml Discontinued Medications Bisacodyl (Dulcolax) 10 mg RECTAL ONETIME ONE Stop: 11/04/16 14:24 Last Admin: 11/04/16 14:50 Dose: 10 mg Sodium Chloride (Normal Saline) 1,000 mls @ 999 mls/hr IV .Bolus ONE Stop: 11/04/16 10:30 Last Admin: 11/04/16 09:49 Dose: 999 mls/hr Potassium Chloride/Sodium Chloride (Normal Saline With 20 Meq Kcl) 1,000 mls @ 75 mls/hr IV ASDIRECTED [facility] Last Admin: 11/05/16 03:44 Dose: 75 mls/hr Magnesium Sulfate 2 gm/ Premix 50 mls @ 50 mls/hr IV ONETIME ONE Stop: 11/05/16 10:23 Last Admin: 11/05/16 10:24 Dose: 50 mls/hr Iopamidol (Isovue-370 (76%)) 100 ml IVPUSH ONETIME STA Stop: 11/04/16 11:49 Last Admin: 11/04/16 11:50 Dose: 50 ml Potassium Chloride (Klor-Con M20) 20 meq PO ONETIME ONE Stop: 11/05/16 00:38 Last Admin: 11/05/16 00:56 Dose: 20 meq - Exam Quality Assessment: Reports: supplemental oxygen General: Reports: alert HEENT: Reports: Pupils equal Neck: Reports: trachea midline Lungs: Reports: Clear to auscultation Cardiovascular: Reports: Regular Rate Abdomen: Reports: soft (Male) Exam: Deferred Rectal (Males) Exam: Normal rectal tone Back Exam: Reports: normal inspection Extremities: Reports: no edema Skin: Reports: warm Wound/Incisions: Reports: healing well (n/a) Neurological: Reports: no new focal deficit Psy/Mental Status: Reports: alert *Q Meaningful Use (DIS) - VTE *Q VTE Criteria *Q: - Stroke *Q Stroke Criteria *Q: - AMI *Q AMI Criteria *Q:
[2016-11-06 16:41] VITALS: BP 106/56
--- NOTE | 2016-11-06 16:45 | PCM.SN ---
- Free Text/Narrative Note: addendum to discharge summary:: Pt does not meet the strict criteria for home oxygen The cost is considerable for a person of his means and the benefit marginal. Though pt states he felt better with oxygen, that was not evident on his walking trial and the benefit seems marginal at this time
--- NOTE | 2016-11-06 17:33 | CR ---
EXAM DATE: 11/04/16 PATIENT'S AGE: 56 Patient: KHUSHBU GOLDSTEIN Facility: [place], [place] Site . Site : 1960 Study: XRay Chest [id number] 10:20:46 AM Ordering Physician: Ashwin Alonso Final Report: HISTORY: Low O2 sats. Technique: Portable AP upright chest. Comparison: None. Findings: The heart size, mediastinum, and pulmonary veins are normal. The lungs are clear. There is no pneumothorax or effusion. Impression: Negative AP chest. Dictated by Pdero Black MD @ Nov 04 2016 10:47AM (Electronic Signature) Report Signed by Proxy and Original Signed Document filed in the Medical Record. MTDD
--- NOTE | 2016-11-06 17:34 | CT ---
EXAM DATE: 11/04/16 PATIENT'S AGE: 56 Patient: KHUSHBU GOLDSTEIN Facility: [place], [place] Site . Site : 1960 Study: CT Chest Angio [id number] 12:14:11 PM Ordering Physician: Feliberto Cervantes Final Report: INDICATION: Hypoxia. TECHNIQUE: Multiple axial images were obtained from the apices to the diaphragm per the pulmonary artery embolism protocol after administration of 50 mL of Isovue-370 intravenously. Sagittal and coronal re-formatted images were obtained. COMPARISON: None. FINDINGS: There are minimal bilateral pleural effusions. There patchy airspace opacities in the lower lobes and upper lobes bilaterally. There is no axillary, mediastinal or hilar adenopathy. There is no pulmonary artery embolism seen on this the study. IMPRESSION: 1. Minimal bilateral effusions. 2. Patchy airspace opacities in the lungs bilaterally. 3. No pulmonary artery embolism seen. Dictated by Alexandru Farley MD @ 11/04/2016 12:35:02 PM Dictated by: Alexandru Farley MD @ 11/04/2016 12:35:22 (Electronic Signature) Report Signed by Proxy and Original Signed Document filed in the Medical Record. [facility]
== END 2016-11-06 17:30 | disposition home or self-care (01) ==
LOC: MW.ED 08:43 → MW.MS 11:25
PROVIDERS: ADMIT Internal Medicine; ATTEND Internal Medicine
DX: E87.1 Hypo-osmolality and hyponatremia (principal); R33.9 Retention of urine, unspecified; Z79.899 Other long term (current) drug therapy; F17.210 Nicotine dependence, cigarettes, uncomplicated
CPT/HCPCS: 36415; 71010; 71275; 80048; 80053; 81001; 82330; 83735; 84100; 84484; 85025; 93005; 96361; 96365; 99285; A9270; G0378; J3475; J3480; J7040; Q9967; 96360; 99284

== ENCOUNTER → 2016-11-30 | Outpatient (CLI) | payer MEDICAID | LOC: MW.DI 10:21 | PROVIDERS: ATTEND Family Medicine | DX: R91.1 Solitary pulmonary nodule (principal); Z53.9 Procedure and treatment not carried out, unspecified reason ==

== ENCOUNTER 2024-09-19 06:00 | Emergency (ER) | payer MEDICAID, MEDICARE ==
[2024-09-19] MEDS: Etomidate 2 MG/ML 20 ML SDV IVPUSH ONE (06:18)
[2024-09-19] MEDS: Succinylcholine 200 MG/10 ML MDV IVPUSH ONE (06:18)
[2024-09-19 06:32] LABS: BASOPHILS ABSOLUTE AUTO 0.01 K/uL (0.00-0.20); BASOPHILS PERCENT AUTO 0.2 % (0.0-1.0); EOSINOPHILS ABSOLUTE AUTO 0.01 K/uL (0.00-0.45); EOSINOPHILS PERCENT AUTO 0.2 % (0.0-6.0); HEMATOCRIT 29.8 % (42.0-52.0); HEMOGLOBIN 10.5 g/dL (14.0-18.0); IMMATURE GRAN ABSOLUTE AUTO 0.05 K/uL (0.00-0.05); IMMATURE GRAN PERCENT AUTO 0.8 % (0.0-0.4); LYMPHOCYTES PERCENT AUTO 12.6 % (24.0-44.0); MEAN CORPUSCULAR HEMOGLOBIN 32.3 pg (28.0-32.0); MEAN CORPUSCULAR HGB CONC 35.2 g/dL (32.0-36.0); MEAN CORPUSCULAR VOLUME 91.7 fL (83.0-99.0); MEAN PLATELET VOLUME 9.2 fL (9.4-12.4); MONOCYTES ABSOLUTE AUTO 0.72 K/uL (0.00-0.80); MONOCYTES PERCENT AUTO 11.4 % (0.0-8.0); NEUTROPHILS ABSOLUTE AUTO 4.75 K/uL (1.80-7.70); NEUTROPHILS PERCENT AUTO 74.8 % (41.0-71.0); PLATELET COUNT,PLT 170 K/uL (150-400); RED BLOOD CELL COUNT 3.25 M/uL (4.52-5.90); WHITE BLOOD CELL COUNT,WBC 6.34 K/uL (3.9-11.3)
[2024-09-19] MEDS: Piperacillin/Tazobactam 4.5 GM in Sodium Chloride 0.9% 100 ML IV ONE (06:39)
[2024-09-19] MEDS: Sodium Chloride 0.9% 10 ML Syringe FLUSH PRN (06:40)
[2024-09-19] MEDS: Sodium Chloride 0.9% 2.5 ML Syringe FLUSH PRN (06:40)
[2024-09-19] MEDS: Sodium Chloride 0.9% 1,000 ML IV STA (06:44)
[2024-09-19] MEDS: propofoL 1,000 MG/100 ML 100 ML IV SCH (06:45)
[2024-09-19] MEDS ORDERED: propofoL 1,000 MG/100 ML 100 ML IV SCH (06:45)
[2024-09-19 06:50] LABS: INR 1.07 (0.86-1.11); PTT,PARTIAL THROMBOPLSTIN TIME 36.7 SEC (23.9-30.7)
[2024-09-19 06:54] LABS: APPEARANCE,URINE CLEAR; BILIRUBIN,URINE NEGATIVE (NEGATIVE); COLOR,URINE YELLOW; GLUCOSE,URINE NEGATIVE (NEGATIVE); KETONES,URINE TRACE mg/dL (NEGATIVE); LEUKOCYTE ESTERASE,URINE NEGATIVE (NEGATIVE); NITRITE,URINE NEGATIVE (NEGATIVE); OCCULT BLOOD,URINE SMALL (NEGATIVE); PH,URINE 5.5 (5.0-8.0); PROTEIN,URINE 100 mg/dL (NEGATIVE)
[2024-09-19 07:07] LABS: BACTERIA,URINE FEW (NEGATIVE); EPITHELIAL CELLS,URINE RARE (NONE-FEW); RBC,URINE NONE SEEN (0-2/HPF); WBC,URINE 0-1 (0-5/HPF)
[2024-09-19 07:07] LABS: LACTIC ACID 1.2 mmol/L (0.4-2.0)
[2024-09-19 07:08] LABS: MUCUS,URINE LIGHT (NONE-MOD)
[2024-09-19 07:12] LABS: A/G RATIO 1.1 (0.9-1.6); ALBUMIN 3.9 g/dL (3.4-5.0); BILIRUBIN TOTAL 0.5 mg/dL (0.2-1.0); CALCIUM 9.1 mg/dL (8.5-10.1); EST CRCL DRUG DOSING (CG) 35.63 mL/min; POTASSIUM,K 4.7 mmol/L (3.5-5.1); PROTEIN TOTAL,TP 7.4 g/dL (6.4-8.2)
[2024-09-19] MEDS ORDERED: fentaNYL 50 MCG/ML SDV IVPUSH PRN (07:15)
[2024-09-19 07:21] LABS: BICARBONATE,ARTERIAL 28 mEq/L (22-26); PCO2 ARTERIAL 49 mmHG (35-45); PO2 ARTERIAL 91 mmHG (80-105)
[2024-09-19] MEDS: fentaNYL/Normal Saline 2,500 MCG in Premix Bag 1 BAG IV PRN (07:21)
[2024-09-19] MEDS: fentaNYL 50 MCG/ML SDV IVPUSH ONE (07:21)
[2024-09-19] MEDS: Lactated Ringers 1,000 ML IV ONE (07:42)
[2024-09-19] MEDS ORDERED: Norepinephrine Bit/D5W Premix 250 ML IV SCH (07:45)
[2024-09-19 07:53] LABS: CORONAVIRUS COVID-19 NAA NEGATIVE (NEGATIVE); INFLUENZA A NAA POSITIVE (NEGATIVE); INFLUENZA B NAA NEGATIVE (NEGATIVE)
[2024-09-19 08:06] LABS: AMPHETAMINES SCREEN, URINE NEGATIVE (CUTOFF=500); BARBITURATE SCREEN,URINE NEGATIVE (CUTOFF=200); BENZODIAZEPINES SCREEN,URINE NEGATIVE (CUTOFF=150); BUPRENORPHINE SCREEN,URINE NEGATIVE (CUTOFF=10); METHADONE SCREEN, URINE NEGATIVE (CUTOFF=200); METHAMPHETAMINES SCREEN, URINE NEGATIVE (CUTOFF=500); OXYCODONE SCREEN,URINE NEGATIVE (CUT0FF=100); PCP SCREEN,URINE NEGATIVE (CUTOFF=25); THC SCREEN,URINE 20 NG/ML NEGATIVE (CUTOFF=50)
[2024-09-19 08:08] LABS: ACETAMINOPHEN <2.0 ug/mL; SALICYLATE 1.7 mg/dL (0.0-20.0)
[2024-09-19 08:12] LABS: ETHANOL BLOOD MEDICAL < 3.0 mg/dL
[2024-09-19] MEDS: VANCOmycin 2 GM/400 ML 2 GM in Premix Bag 1 BAG IV ONE (08:40)
[2024-09-19] MEDS: Iopamidol 755 MG/ML 500 ML Multipack Bottle IVPUSH STA (08:51)
[2024-09-19 08:56] VITALS: BP 146/93; PULSE 65
[2024-09-21] MEDS: Iopamidol 755 MG/ML 500 ML Multipack Bottle IVPUSH ONE (06:27)
== END 2024-09-19 09:10 ==
LOC: MW.ED 06:00
DX: J18.9 Pneumonia, unspecified organism (principal); R41.82 Altered mental status, unspecified; J96.01 Acute respiratory failure with hypoxia; J10.1 Influenza due to other identified influenza virus with other respiratory manifestations; I31.39 Other pericardial effusion (noninflammatory); I71.43 Infrarenal abdominal aortic aneurysm, without rupture; N17.9 Acute kidney failure, unspecified; E87.1 Hypo-osmolality and hyponatremia; K52.9 Noninfective gastroenteritis and colitis, unspecified; D63.1 Anemia in chronic kidney disease; R79.89 Other specified abnormal findings of blood chemistry
CPT/HCPCS: 0240U; 31500; 36415; 36600; 51702; 70450; 71046; 71275; 72125; 74177; 80053; 80143; 80179; 80305; 80307; 81001; 82803; 83605; 83880; 84145; 84484; 85025; 85610; 85730; 87040; 93005; 96365; 96366; 96367; 96368; 99291; J0330; J2543; J2704; J3010; J3372; J3490; J7030; J7120; 93010; 99285; Q9967

== ENCOUNTER 2025-02-27 09:18 | Emergency (ER) | payer MEDICARE, MEDICAID ==
[2025-02-27 10:11] LABS: BASOPHILS ABSOLUTE AUTO 0.02 K/uL (0.00-0.20); BASOPHILS PERCENT AUTO 0.3 % (0.0-1.0); EOSINOPHILS ABSOLUTE AUTO 0.09 K/uL (0.00-0.45); EOSINOPHILS PERCENT AUTO 1.2 % (0.0-6.0); IMMATURE GRAN ABSOLUTE AUTO 0.02 K/uL (0.00-0.05); IMMATURE GRAN PERCENT AUTO 0.3 % (0.0-0.4); LYMPHOCYTES ABSOLUTE AUTO 1.55 K/uL (1.00-4.80); LYMPHOCYTES PERCENT AUTO 21.5 % (24.0-44.0); MEAN PLATELET VOLUME 9.2 fL (9.4-12.4); MONOCYTES ABSOLUTE AUTO 1.11 K/uL (0.00-0.80); MONOCYTES PERCENT AUTO 15.4 % (0.0-8.0); NEUTROPHILS ABSOLUTE AUTO 4.42 K/uL (1.80-7.70); NEUTROPHILS PERCENT AUTO 61.3 % (41.0-71.0); NRBC ABSOLUTE 0.00 K/uL (0.00-0.02); NRBC PERCENT 0.0 /100WBC (0.0-0.2); PLATELET COUNT,PLT 181 K/uL (150-400); RED BLOOD CELL COUNT 3.43 M/uL (4.52-5.90); WHITE BLOOD CELL COUNT,WBC 7.21 K/uL (3.9-11.3)
[2025-02-27 10:37] LABS: IRON,FE 43.0 ug/dL (50-175); PERCENT FE SATURATION 19.37 % (20-55)
[2025-02-27 10:56] VITALS: BP 111/50; PULSE 76
== END 2025-02-27 11:05 | disposition home or self-care (01) ==
LOC: MW.ED 09:18
DX: D50.0 Iron deficiency anemia secondary to blood loss (chronic) (principal); N18.9 Chronic kidney disease, unspecified; Z79.899 Other long term (current) drug therapy
CPT/HCPCS: 36415; 83550; 85025; 86850; 86900; 86901; 99283; 99284